=== PATIENT | male | born 1950 | race Two or more races ===

== ENCOUNTER 2024-02-20 16:33 | Inpatient (IN) | payer OTHER ==
[2024-02-20] MEDS ORDERED: ONDANSETRON 4 MG/2 ML VIAL ONE (17:13)
[2024-02-20] MEDS ORDERED: FAMOTIDINE 20 MG/50 ML IVPB 20 MG/50 ML MG IVPB ONE (17:14)
[2024-02-20 17:19] LABS: HEMATOCRIT 32.6 % (35.4-49); HEMOGLOBIN 11.3 GM/dL (11.7-16.9); MCH 31.9 pg (25.7-33.7); MCHC 34.7 g/dl (32.0-35.9); MEAN PLT VOLUME 8.4 fl (7.5-11.1); PLATELET COUNT 313 10^3/uL (134-434); RBC 3.55 M/mm3 (4.00-5.60); RDW 13.7 % (11.9-15.9); WHITE BLOOD COUNT 20.6 K/mm3 (4.0-10.0)
[2024-02-20] MEDS: ONDANSETRON 4 MG/2 ML VIAL IVPUSH ONE (17:21)
[2024-02-20] MEDS: FAMOTIDINE 20 MG/50 ML IVPB 20 MG/50 ML MG IVPB ONE (17:21)
[2024-02-20] MEDS: SODIUM CHLORIDE 1,000 ML IV STA (17:21)
[2024-02-20 17:26] LABS: INR 1.11 (0.83-1.09); PROTHROMBIN TIME (PATIENT) 12.7 SEC (9.7-13.0)
[2024-02-20 17:29] LABS: ACTIVATED PTT 34.2 SECONDS (25.2-36.5)
[2024-02-20 17:41] LABS: ANISOCYTOSIS 1+; MACROCYTOSIS 0
[2024-02-20 17:45] LABS: POTASSIUM 4.1 mmol/L (3.5-5.1)
[2024-02-20 17:47] LABS: ALBUMIN 3.3 g/dl (3.4-5.0); CALCIUM 8.8 mg/dL (8.5-10.1)
[2024-02-20 17:48] LABS: BLOOD UREA NITROGEN 18.1 mg/dL (7-18); MAGNESIUM 1.3 mg/dL (1.8-2.4)
[2024-02-20 17:51] LABS: CREATININE 1.4 mg/dL (0.55-1.3)
[2024-02-20 17:52] LABS: BILIRUBIN,TOTAL 0.7 mg/dL (0.2-1); TOT PROT 6.6 g/dl (6.4-8.2)
[2024-02-20] MEDS ORDERED: VANCOMYCIN 1 GRAM (PRE-DOCKED) 1,000 MG/250 ML BAG IVPB ONE (18:27)
[2024-02-20] MEDS ORDERED: PIPERACILLIN/TAZOB 3.375 GM 3.375 GM/50 ML BAG IVPB ONE (18:27)
[2024-02-20 18:35] LABS: EPI CELLS 11 /uL (0-25.1); HYALINE CASTS 4 /uL (0-3.1); PH,URINE 5.5 (5.0-8.0); URINE APPEARANCE CLOUDY; URINE BACTERIA 4734 /uL (0-1359); URINE BILIRUBIN 1+ (NEGATIVE); URINE COLOR DK YELLOW; URINE GLUCOSE (UA) NEGATIVE (NEGATIVE); URINE KETONE TRACE (NEGATIVE); URINE LEUK ESTERASE 1+ (NEGATIVE); URINE NITRITE NEGATIVE (NEGATIVE); URINE PROTEIN 3+ (NEGATIVE); URINE RBC 4 /uL (0-23.9); URINE WBC 206 /uL (0-25.8)
[2024-02-20] MEDS: PIPERACILLIN/TAZOB 3.375 GM 3.375 GM in DEXTROSE 5%-WATER - 50 ML IVPB ONE (18:59)
[2024-02-20 19:02] LABS: LACTIC ACID 2.5 mmol/L (0.4-2.0)
[2024-02-20] MEDS: VANCOMYCIN 1 GM PREMIX - 1 GM/200 ML BAG IVPB ONE (19:21)
[2024-02-20] MEDS ORDERED: ONDANSETRON 4 MG/2 ML VIAL IVPUSH PRN (21:06)
[2024-02-20] MEDS ORDERED: MAGNESIUM SULFATE IN WATER 2 GM/50 ML IVPB IVPB ONE (22:22)
[2024-02-20] MEDS: SODIUM CHLORIDE 1,000 ML IV SCH (22:33)
[2024-02-20] MEDS: MAGNESIUM SULF 50% (8.12 MEQ/2 ML-1 GM VIAL) IVPB ONE (22:34)
[2024-02-21] MEDS: DEXTROSE 5%-0.45% SALINE 1,000 ML IV SCH (00:02)
[2024-02-21] MEDS ORDERED: PIPERACILLIN/TAZOB 3.375 GM 3.375 GM/50 ML BAG IVPB ONE (01:37)
[2024-02-21] MEDS: PIPERACILLIN/TAZOB 3.375 GM 3.375 GM in DEXTROSE 5%-WATER - 50 ML IVPB SCH ×2 (01:40→17:35)
[2024-02-21] MEDS ORDERED: PIPERACILLIN/TAZOB 3.375 GM 3.375 GM in DEXTROSE 5%-WATER - 50 ML IVPB SCH (02:00)
[2024-02-21 04:43] VITALS: RESP 18; BMI 27.0
[2024-02-21] MEDS ORDERED: METOPROLOL TARTRATE 5 MG/5 ML VIAL IVPB PRN (06:36)
[2024-02-21] MEDS: PANTOPRAZOLE SODIUM 40 MG VIAL IVPUSH SCH (09:09)
[2024-02-21] MEDS: DORZOLAMIDE HCL/TIMOLOL OPHTHALMIC SOLUTION 10 ML BOTTLE OU SCH ×2 (09:11→22:17)
[2024-02-21 09:48] LABS: BASO % 0.2 % (0-2.0); HEMATOCRIT 30.6 % (35.4-49); HEMOGLOBIN 10.8 GM/dL (11.7-16.9); LYMPH % 4.1 % (8-40); MCH 32.3 pg (25.7-33.7); MCHC 35.2 g/dl (32.0-35.9); MEAN CELL VOLUME 91.9 fl (80-96); MONO % 9.9 % (3.8-10.2); NEUT % 85.8 % (42.8-82.8); PLATELET COUNT 248 10^3/uL (134-434); RBC 3.33 M/mm3 (4.00-5.60); RDW 13.8 % (11.9-15.9); WHITE BLOOD COUNT 18.8 K/mm3 (4.0-10.0)
[2024-02-21] MEDS: ACETAMINOPHEN 1000 MG/100 ML BAG IVPB PRN (10:08)
[2024-02-21 10:18] LABS: CALCIUM 8.6 mg/dL (8.5-10.1)
[2024-02-21 10:19] LABS: BLOOD UREA NITROGEN 14.2 mg/dL (7-18)
[2024-02-21 10:22] LABS: CREATININE 1.2 mg/dL (0.55-1.3)
[2024-02-21] MEDS ORDERED: BUPIVACAINE HCL/PF 0.25% (2.5MG/ML) 10 ML VIAL ONE ×2 (10:46→11:19)
[2024-02-21] MEDS ORDERED: MIDAZOLAM HCL 2 MG/2 ML SINGLE DOSE VIAL ONE (11:45)
[2024-02-21] MEDS ORDERED: PROPOFOL 40 ML ONE (11:45)
[2024-02-21] MEDS ORDERED: SUGAMMADEX SODIUM 200 MG/2 ML VIAL ONE (11:49)
[2024-02-21] MEDS ORDERED: ROCURONIUM BROMIDE 50 MG/5 ML SYRINGE ONE (11:49)
[2024-02-21] MEDS ORDERED: ceFAZolin SODIUM 1 GM VIAL ONE (12:22)
[2024-02-21] MEDS: BUPIVACAINE HCL/PF 0.25% (2.5MG/ML) 10 ML VIAL IJ ONE ×2 (12:39)
[2024-02-21] MEDS ORDERED: ONDANSETRON 4 MG/2 ML VIAL ONE (13:57)
[2024-02-21] MEDS ORDERED: ONDANSETRON 4 MG/2 ML VIAL IVPUSH PRN ×2 (14:26→14:41)
[2024-02-21] MEDS: ACETAMINOPHEN 1000 MG/100 ML BAG IVPB SCH (15:06)
[2024-02-21] MEDS: ACETAMINOPHEN 1000 MG/100 ML BAG IVPB ONE (15:07)
[2024-02-21] MEDS: LACTATED RINGERS SOLUTION 1,000 ML IV SCH (15:27)
[2024-02-21] MEDS: DEXTROSE 5%-LACTATED RINGERS 1,000 ML IV SCH (16:11)
[2024-02-21] MEDS: oxyCODONE HCL 5 MG TABLET PO PRN (18:33)
[2024-02-21] MEDS ORDERED: HEPARIN NA (PORCINE) 5,000 UNITS/ML 1ML VIAL SQ SCH (22:00)
[2024-02-21] MEDS ORDERED: LATANOPROST 0.005% OPHTH SOLN 2.5ML BOTTLE OU SCH (22:00)
[2024-02-21] MEDS: HEPARIN NA (PORCINE) 5,000 UNITS/ML 1ML VIAL SQ SCH (22:10)
[2024-02-21] MEDS: LATANOPROST 0.005% OPHTH SOLN 2.5ML BOTTLE OU SCH (22:18)
[2024-02-22 09:49] LABS: BASO % 0.1 % (0-2.0); HEMATOCRIT 27.8 % (35.4-49); HEMOGLOBIN 9.6 GM/dL (11.7-16.9); LYMPH % 5.1 % (8-40); MCH 32.3 pg (25.7-33.7); MCHC 34.6 g/dl (32.0-35.9); MEAN CELL VOLUME 93.5 fl (80-96); MONO % 7.4 % (3.8-10.2); NEUT % 87.4 % (42.8-82.8); PLATELET COUNT 242 10^3/uL (134-434); RBC 2.97 M/mm3 (4.00-5.60); RDW 14.3 % (11.9-15.9); WHITE BLOOD COUNT 14.3 K/mm3 (4.0-10.0)
[2024-02-22 09:57] LABS: POTASSIUM 3.8 mmol/L (3.5-5.1)
[2024-02-22 09:59] LABS: BLOOD UREA NITROGEN 16.6 mg/dL (7-18); CALCIUM 8.1 mg/dL (8.5-10.1)
[2024-02-22 10:00] LABS: ALBUMIN 2.2 g/dl (3.4-5.0)
[2024-02-22 10:03] LABS: CREATININE 1.3 mg/dL (0.55-1.3)
[2024-02-22 10:04] LABS: BILIRUBIN,TOTAL 0.5 mg/dL (0.2-1); TOT PROT 5.2 g/dl (6.4-8.2)
[2024-02-22] MEDS: SIMETHICONE 80 MG TAB.CHEW (FP) PO ONE (10:08)
[2024-02-22] MEDS: PANTOPRAZOLE SODIUM 40 MG VIAL IVPUSH SCH (10:08)
[2024-02-22] MEDS: PIPERACILLIN/TAZOB 3.375 GM 3.375 GM in DEXTROSE 5%-WATER - 50 ML IVPB SCH ×2 (10:10→17:23)
[2024-02-22] MEDS ORDERED: ACETAMINOPHEN 650 MG/20.3 ML ORAL SOLUTION (CUPS) PO PRN (12:00)
[2024-02-22] MEDS: INSULIN ASPART SLIDING SCALE (NOVOLOG) 1 VIAL SQ SCH (22:25)
[2024-02-23 10:29] LABS: HEMATOCRIT 26.9 % (35.4-49); HEMOGLOBIN 9.3 GM/dL (11.7-16.9); MCH 32.1 pg (25.7-33.7); MCHC 34.5 g/dl (32.0-35.9); MEAN CELL VOLUME 92.9 fl (80-96); MEAN PLT VOLUME 8.7 fl (7.5-11.1); PLATELET COUNT 291 10^3/uL (134-434); RDW 13.9 % (11.9-15.9); WHITE BLOOD COUNT 14.4 K/mm3 (4.0-10.0)
[2024-02-23 10:44] LABS: POTASSIUM 3.7 mmol/L (3.5-5.1)
[2024-02-23 10:55] LABS: CALCIUM 8.6 mg/dL (8.5-10.1)
[2024-02-23 10:56] LABS: ALBUMIN 2.1 g/dl (3.4-5.0); BLOOD UREA NITROGEN 18.6 mg/dL (7-18)
[2024-02-23 10:59] LABS: BILIRUBIN,TOTAL 0.5 mg/dL (0.2-1); CREATININE 1.3 mg/dL (0.55-1.3)
[2024-02-23 11:00] LABS: TOT PROT 5.3 g/dl (6.4-8.2)
[2024-02-23] MEDS: MAGNESIUM HYDROX 2400MG/30ML ORAL SUSPENSION 30 ML CUP PO ONE (13:17)
[2024-02-23] MEDS ORDERED: SIMETHICONE 80 MG TAB.CHEW (FP) PO PRN (18:36)
[2024-02-23] MEDS: LIPASE/PROTEASE/AMYLASE 24,000 UNIT CAPSULE PO SCH (21:11)
[2024-02-23] MEDS: POLYETHYLENE GLYCOL (HEALTHYLAX) 3350 17 GM PACKET PO SCH (21:25)
[2024-02-23] MEDS: SODIUM PHOSPHATE/NA BIPHOS 133 ML ENEMA RC ONE (22:42)
[2024-02-24] MEDS: INSULIN (LEVEMIR) 100 UNITS/ML UNITS SQ SCH (08:44)
[2024-02-24 10:11] VITALS: BP 165/84; PULSE 77; TEMP 98.1
[2024-02-24 10:21] LABS: HEMATOCRIT 26.2 % (35.4-49); HEMOGLOBIN 9.2 GM/dL (11.7-16.9); MCH 32.7 pg (25.7-33.7); MEAN CELL VOLUME 93.5 fl (80-96); MEAN PLT VOLUME 8.4 fl (7.5-11.1); PLATELET COUNT 329 10^3/uL (134-434); RBC 2.81 M/mm3 (4.00-5.60); WHITE BLOOD COUNT 10.8 K/mm3 (4.0-10.0)
[2024-02-24 10:22] LABS: POTASSIUM 4.1 mmol/L (3.5-5.1)
[2024-02-24 10:25] LABS: BLOOD UREA NITROGEN 13.4 mg/dL (7-18); CALCIUM 8.8 mg/dL (8.5-10.1)
[2024-02-24 10:26] LABS: ALBUMIN 2.1 g/dl (3.4-5.0)
[2024-02-24 10:29] LABS: CREATININE 1.1 mg/dL (0.55-1.3)
[2024-02-24 10:30] LABS: BILIRUBIN,TOTAL 0.6 mg/dL (0.2-1); TOT PROT 5.3 g/dl (6.4-8.2)
== END 2024-02-24 15:49 | disposition home or self-care (01) | DRG 418 ==
LOC: JER 16:33 → JERBED 18:52 → J6S 02-21 04:11
PROVIDERS: ADMIT Internal Medicine; ATTEND Family Medicine
PROC: 0FT44ZZ Resection of Gallbladder, Percutaneous Endoscopic Approach (ICD-10-PCS; principal; 2024-02-21 14:30)
DX: K80.12 Calculus of gallbladder with acute and chronic cholecystitis without obstruction (principal); E87.20 Acidosis, unspecified; N39.0 Urinary tract infection, site not specified; I10 Essential (primary) hypertension; E11.39 Type 2 diabetes mellitus with other diabetic ophthalmic complication; E78.5 Hyperlipidemia, unspecified; K63.5 Polyp of colon; K21.9 Gastro-esophageal reflux disease without esophagitis
CPT/HCPCS: 0241U-QW; 36415; 71046-TC-FY; 74018-TC-FY; 74176-TC; 76705-TC; 80048; 80053; 81003; 82010; 82570; 82962; 83605; 83690; 83735; 84156; 84300; 84484; 85025; 85027; 85610; 85730; 86850; 86900; 86901; 87040; 87070; 87075; 87086; 87186; 87205; 88304-TC; 93005; 93010; 94010; 94760; 97116-GP; 97161-GP; 99285-25; J0131; J1644

== ENCOUNTER 2024-10-31 18:18 | Emergency (ER) | payer OTHER ==
[2024-10-31 18:25] VITALS: BP 126/99; PULSE 61; RESP 16; TEMP 98.2; BMI 26.9
[2024-10-31] MEDS ORDERED: CEFAZOLIN 2 GM/D5W 2 GM/50 ML ML IVPB ONE (20:04)
[2024-10-31] MEDS ORDERED: DIPHTH,PERTUSS(ACELL),TET 0.5 ML DISP.SYRIN IM ONE (20:15)
[2024-10-31] MEDS ORDERED: ACETAMINOPHEN 500 MG TABLET (FP) ONE (20:15)
[2024-10-31] MEDS: DIPHTH,PERTUSS(ACELL),TET 0.5 ML DISP.SYRIN IM ONE (20:20)
[2024-10-31] MEDS: ACETAMINOPHEN 500 MG TABLET (FP) PO ONE (20:25)
[2024-10-31] MEDS: CEFAZOLIN 2 GM in DEXTROSE 5%-WATER - 50 ML IVPB ONE (20:35)
== END 2024-10-31 22:15 | disposition home or self-care (01) ==
LOC: JER 18:18
PROC: 0HQ1XZZ Repair Face Skin, External Approach (ICD-10-PCS; principal; 2024-10-31)
PROC: 3E03329 Introduction of Other Anti-infective into Peripheral Vein, Percutaneous Approach (ICD-10-PCS; 2024-10-31)
PROC: 3E0234Z Introduction of Serum, Toxoid and Vaccine into Muscle, Percutaneous Approach (ICD-10-PCS; 2024-10-31)
DX: S02.2XXA Fracture of nasal bones, initial encounter for closed fracture (principal); S01.21XA Laceration without foreign body of nose, initial encounter; R42 Dizziness and giddiness; Z23 Encounter for immunization; W08.XXXA Fall from other furniture, initial encounter; Y92.019 Unspecified place in single-family (private) house as the place of occurrence of the external cause
CPT/HCPCS: 12011-25; 70450-TC; 70486-TC; 71046-TC-FY; 72125-TC; 90471; 90715; 93005; 93010; 99285-25